=== PATIENT | female | born 1980 | race Caucasian/White ===

== ENCOUNTER 2017-06-15 13:01 | Emergency (ER) | payer OTHER ==
[~2017-06-15] VITALS: Ht 154.9 cm; Wt 57.4 kg
[~2017-06-15 13:01] MED LIST: BENZ100 PO; NICO14T TD; ROBIDMS PO; Z.0.BCPILL PO; ZOLO50TA PO
[2017-06-15 13:06] VITALS: BP 121/69; PULSE 88; RESP 17; TEMP 98.9
[2017-06-15] MEDS ORDERED: VENTAER INH (13:52)
[2017-06-15] MEDS ORDERED: SERT-132 PO (13:52)
--- NOTE | 2017-06-15 13:56 | PD ---
HPI . Bleeding during Chief Complaint: Related Problem Time Seen by Provider: 13:15 Travel History International Travel<30 days: No Contact w/Intl Traveler<30days: No Traveled to known affect area: No History of Present Illness HPI 37 yo F 11 weeks by LMP (03/29/17) presents to ED with bleeding. She states around 12pm this afternoon she saw bright red blood per vagina. She immediately placed a tampon in and presented to the ED. She reports some abdominal cramps for the last 2 weeks but they have been slightly worse in the last two days. Last intercourse was a week ago. She is concerned over the possibility of miscarriage as she has had two in the past. She is also concerned because this was an unplanned and she reports taking several medications prior to discovering her . She reports no other trauma or vaginal trauma. She denies any history of STDs. She denies any urinary frequency, urgency or burning with urination or any abnormal vaginal discharge. She is blood type A+. She has noted no modifying factors. PFSH Past Medical History Asthma: Yes Anxiety: Yes Depression: Yes Cancer: No Cardiovascular Problems: No Diabetes: No Endocrine: No Gastrointestinal Disorders: Yes Genitourinary: No Immune Disorder: No Implanted Vascular Access Dvce: No Musculoskeletal: No Neurologic: No Psychiatric: Yes Reproductive: No Respiratory: Yes (recurrent spesis pneumonia, asthma) Pneumonia: Yes Thyroid Disease: No Influenza Vaccination: No ?: LMP: 03/29/17 Past Surgical History Abdominal Surgery: No AICD: No Arteriovenous Shunt: No Cardiac Surgery: No Ear Surgery: No Endocrine Surgery: No Eye Surgery: No Genitourinary Surgery: No Gynecologic Surgery: No Insulin Pump: No Joint Replacement: No Neurologic Surgery: No Oral Surgery: No Pacemaker: No Thoracic Surgery: No Other Surgery: Yes (TUMOR ON THUMB REMOVED) Social History Alcohol Use: Yes (OCC) Tobacco Use: Yes (1ppd/quit after getting 3 weeks ago) Substance Use: Yes Allergies-Medications (Allergen,Severity, Reaction): Coded Allergies: latex (Verified Allergy, Intermediate, RASH, 06/15/17) Reported Meds & Prescriptions Reported Meds & Active Scripts Active Reported Ventolin Hfa 18 GM Inh (Albuterol Sulfate) 90 Mcg/Act Aer 2 Puff INH Q4-6H PRN Sertraline (Sertraline HCl) 50 Mg Tab 50 Mg PO DAILY Review of Systems Except as stated in HPI: all other systems reviewed are Neg General / Constitutional: No: Fever, Chills HENT: No: Headaches Cardiovascular: No: Chest Pain or Discomfort, Palpitations Respiratory: No: Cough, Shortness of Breath Gastrointestinal: No: Nausea, Vomiting, Abdominal Pain Genitourinary: Positive: Pelvic Pain, Vaginal Bleeding, No: Urgency, Frequency , Dysuria, Hematuria, Discharge Physical Exam Narrative General: awake and oriented female laying comfortably in bed in no acute distress. She appears to have been crying. Cardiovascular: regular rate and rhythm. No rubs, murmurs or gallops Skin: Warm and dry with good color. Pulmonary: clear to auscultation bilaterally. No wheezes, rales, rhonchi. Abdomen: soft, non-tender Pelvic: Currently being deferred pending ultrasound. Musculoskeletal: able to move all 4 extremities Neuro: no gross cranial deficits Psych: congruent mood and affect Data Data Last Documented VS Vital Signs Date Time Temp Pulse Resp B/P (MAP) Pulse Ox O2 Delivery O2 Flow Rate FiO2 06/15/17 13:06 98.9 88 17 121/69 (86) Orders Orders Beta Hcg (Quant/Titer) (06/15/17 13:15) Urinalysis - C+S If Indicated (06/15/17 13:15) Ed Urine Pregnancytest Poc (06/15/17 13:15) Ed Poc Ultrasound (06/15/17 13:15) Us Pelvis (Ques Preg/Ectopic) (06/15/17 ) Labs Laboratory Tests Test 06/15/17 13:47 06/15/17 13:58 Human Chorionic Gonadotropin, Quant [id number] MIU/ML Urine Collection Type CLEAN CATCH Urine Color YELLOW Urine Turbidity CLEAR Urine pH 7.0 Urine Specific [place] 1.004 Urine Protein NEG mg/dL Urine Glucose (UA) NEG mg/dL Urine Ketones NEG mg/dL Urine Occult Blood SMALL Urine Nitrite NEG Urine Bilirubin NEG Urine Leukocyte Esterase NEG Urine RBC 4-9 /hpf Urine Squamous Epithelial Cells 0-5 /hpf Microscopic Urinalysis Comment CULT NOT INDICATED Urine Collection Time 13:58 [facility] Medical Decision Making Medical Screen Exam Complete: Yes Emergency Medical Condition: Yes Differential Diagnosis ectopic , spontaneous , vaginal trauma, spotting Narrative Course Patient was seen for cc of bleeding during . POC abdominal ultrasound demonstrated intrauterine with heart rate 185 bpm. Official transvaginal ultrasound pending UA neg quant [id number] US>>Viable IUP 8 weeks 4 day's no free fluid Procedures Procedure Narrative Emergency Department Pelvic ultrasound was performed with patient consent. The curvilinear probe was used in the transverse and sagittal views within the suprapubic region revealing + intrauterine . heart rate was 185. Diagnosis Primary Impression: Bleeding in early Patient Instructions: General Instructions, Threatened Miscarriage (DC) Disposition: 01 DISCHARGE HOME Condition: Stable Julia Morales MD Jun 15, 2017 13:56
[2017-06-15 14:11] LABS: BILIRUBIN, URINE NEG (NEG); BLOOD, URINE SMALL (NEG); GLUCOSE,URINE NEG (NEG); KETONE, URINE NEG (NEG); NITRITE,URINE NEG (NEG); URINE LEUKOCYTE ESTERASE NEG (NEG)
[2017-06-15 14:21] LABS: SQUAMOUS EPITHELIAL CELL URINE 0-5 /hpf (0-5); URINE COLOR YELLOW (YELLW/STRAW)
--- NOTE | 2017-06-15 15:17 | RADRPT ---
EXAM DATE/TIME: 06/15/2017 14:28 [facility] COMPARISON: No previous studies available for comparison. INDICATIONS : Vaginal bleeding. LAB(S): Beta-[facility]C MEDICAL HISTORY : . SURGICAL HISTORY : Abdominal aortic aneurysm repair. Hand surgery. ENCOUNTER: Initial ACUITY: 1 day PAIN SCORE: 0/10 LOCATION: Bilateral pelvis MEASUREMENTS: UTERUS: 11.2 x 6.8 x 5.2 cm ENDOMETRIAL STRIPE: 11 mm RIGHT OVARY: 2.4 x 2.4 x 1.9 cm LEFT OVARY: 2.2 x 2.4 x 1.6 cm CROWN RUMP LENGTH: 2.0 cm = 8 WKS 4 DAYS FHR: 177 BPM FINDINGS: UTERUS: Viable 8 weeks 4 day. RIGHT OVARY: Ovary contains no mass or significant cystic lesion. LEFT OVARY: Ovary contains no mass or significant cystic lesion. MISCELLANEOUS: No free fluid. CONCLUSION: Viable IUP 8 weeks 4 day's no free fluid Jossue Felipe MD FACR on June 15, 2017 at 15:12 Board Certified Radiologist. This report was verified electronically.
[2017-06-15 15:43] VITALS: BP 110/65
== END 2017-06-15 16:50 | disposition home or self-care (01) ==
LOC: PHED 13:01
DX: O46.91 Antepartum hemorrhage, unspecified, first trimester (principal); O99.89 Other specified diseases and conditions complicating pregnancy, childbirth and the puerperium; J45.909 Unspecified asthma, uncomplicated; F41.8 Other specified anxiety disorders; Z87.891 Personal history of nicotine dependence; Z3A.08 8 weeks gestation of pregnancy
CPT/HCPCS: 76700; 81001; 84702; 84703; 99284

== ENCOUNTER 2017-06-20 16:20 | Emergency (ER) | payer OTHER ==
[~2017-06-20] VITALS: Ht 154.9 cm; Wt 59.1 kg
[~2017-06-20 16:20] MED LIST changes: -BENZ100 PO; -NICO14T TD; -ROBIDMS PO; +SERT-132 PO; +VENTAER INH; -Z.0.BCPILL PO; -ZOLO50TA PO
[2017-06-20 16:23] VITALS: BP 136/80; PULSE 81; RESP 16; TEMP 99.4; O2SAT 99
--- NOTE | 2017-06-20 17:12 | PD ---
HPI Chief Complaint: Pain: Acute or Chronic Time Seen by Provider: 17:00 Travel History International Travel<30 days: No Contact w/Intl Traveler<30days: No Traveled to known affect area: No History of Present Illness HPI This is a 37-year-old female who presents to the emergency department having had an IV attempts in her antecubital fossa 5 days ago leading to severe pain in her left arm. Patient reports at that time she felt a sharp shooting pain that radiated down her arm into her palm. Since then she has been having shooting pains that go up and down her arm, intermittent, worse with movement and turning her arm, improved with rest. She has some tingling in the arm but no weakness. She is currently . PENDING SALE TO [facility] Past Medical History Asthma: Yes Anxiety: Yes Depression: Yes Cancer: No Cardiovascular Problems: No Diabetes: No Endocrine: No Gastrointestinal Disorders: Yes Genitourinary: No Immune Disorder: No Implanted Vascular Access Dvce: No Musculoskeletal: No Neurologic: No Psychiatric: Yes Reproductive: No Respiratory: Yes (recurrent spesis pneumonia, asthma) Pneumonia: Yes Thyroid Disease: No ?: Unknown Past Surgical History Abdominal Surgery: No AICD: No Arteriovenous Shunt: No Cardiac Surgery: No Ear Surgery: No Endocrine Surgery: No Eye Surgery: No Genitourinary Surgery: No Gynecologic Surgery: No Insulin Pump: No Joint Replacement: No Neurologic Surgery: No Oral Surgery: No Pacemaker: No Thoracic Surgery: No Other Surgery: Yes (TUMOR ON THUMB REMOVED) Social History Alcohol Use: Yes (OCC) Tobacco Use: Yes (1ppd/quit after getting 3 weeks ago) Substance Use: Yes Allergies-Medications (Allergen,Severity, Reaction): Coded Allergies: latex (Verified Allergy, Intermediate, RASH, 06/20/17) Reported Meds & Prescriptions Reported Meds & Active Scripts Active Reported Ventolin Hfa 18 GM Inh (Albuterol Sulfate) 90 Mcg/Act Aer 2 Puff INH Q4-6H PRN Sertraline (Sertraline HCl) 50 Mg Tab 50 Mg PO DAILY Review of Systems Except as stated in HPI: all other systems reviewed are Neg Physical Exam Narrative GENERAL: Well-appearing, no acute distress, nontoxic SKIN: Warm and dry. HEAD: Atraumatic. Normocephalic. ENT: No nasal bleeding or discharge. Moist mucous membranes Vascular: 2+ left radial pulse with normal capillary refill in the left hand. MUSCULOSKELETAL: No obvious deformities. No clubbing. No cyanosis. No edema. NEUROLOGICAL: Awake and alert. No obvious cranial nerve deficits. Motor grossly within normal limits. Normal speech. Sensation and motor intact in the median, ulnar and radial distributions of the left hand. PSYCHIATRIC: Appropriate mood and affect; insight and judgment normal. Data Data Last Documented VS Vital Signs Date Time Temp Pulse Resp B/P (MAP) Pulse Ox O2 Delivery O2 Flow Rate FiO2 06/20/17 16:23 99.4 81 16 136/80 (98) 99 MDM Medical Decision Making Medical Screen Exam Complete: Yes Emergency Medical Condition: Yes Differential Diagnosis Nerve injury, neuropathic pain, tendon injury Narrative Course This is a 37-year-old female who presents the emergency department with pain in her left arm 5 days after having an IV insertion attempts. Her pain is neuropathic in nature. I suspect the IV needle made contact with a nerve and has left her with some residual neuropathic pain. She is so she is limited in the analgesia she can take. 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 Diagnosis Primary Impression: Neuropathic pain Patient Instructions: General Instructions Additional Instructions: If you develop weakness, coolness or swelling of the arm return to the emergency department. Follow up with your primary care physician in 2-3 weeks if you are not improved. Med/Other Pt SpecificInfo: No Change to Meds Disposition: 01 DISCHARGE HOME Condition: Stable Judith Garcia MD Jun 20, 2017 17:12
== END 2017-06-20 17:47 | disposition home or self-care (01) ==
LOC: PHED 16:20
DX: O99.350 Diseases of the nervous system complicating pregnancy, unspecified trimester (principal); M79.2 Neuralgia and neuritis, unspecified; R20.2 Paresthesia of skin; O26.899 Other specified pregnancy related conditions, unspecified trimester; J45.909 Unspecified asthma, uncomplicated; F41.8 Other specified anxiety disorders; Z87.19 Personal history of other diseases of the digestive system; Z87.891 Personal history of nicotine dependence; Z3A.00 Weeks of gestation of pregnancy not specified
CPT/HCPCS: 99282

== ENCOUNTER → 2017-09-26 | Outpatient (CLI) | payer OTHER | LOC: HPND 12:12 | PROVIDERS: ATTEND Obstetrics & Gynecology | DX: O09.522 Supervision of elderly multigravida, second trimester (principal); O43.192 Other malformation of placenta, second trimester | CPT/HCPCS: 76811; 76825; 76827; 93325 ==

== ENCOUNTER → 2017-11-05 | Outpatient (CLI) | payer OTHER | LOC: HPND 09:14 | PROVIDERS: ATTEND Obstetrics & Gynecology | DX: O43.192 Other malformation of placenta, second trimester (principal) | CPT/HCPCS: 76816 ==